=== PATIENT | female | born 1995 | race Caucasian/White ===

== ENCOUNTER 2018-05-12 20:12 | Emergency (ER) | payer SELFPAY ==
[~2018-05-12 20:12] MED LIST: NO HOME MEDS
== END 2018-05-12 22:38 | disposition left against medical advice (07) ==
LOC: ER 20:13
DX: Z48.02 Encounter for removal of sutures (principal); Z53.21 Procedure and treatment not carried out due to patient leaving prior to being seen by health care provider

== ENCOUNTER 2018-12-30 14:30 | Emergency (ER) | payer SELFPAY ==
[~2018-12-30] VITALS: Ht 160 cm; Wt 82.0 kg
[2018-12-30 14:41] VITALS: BP 166/111
== END 2018-12-30 14:44 ==
LOC: ER 14:31
DX: O16.2 Unspecified maternal hypertension, second trimester (principal); O99.332 Smoking (tobacco) complicating pregnancy, second trimester; O99.322 Drug use complicating pregnancy, second trimester; F12.90 Cannabis use, unspecified, uncomplicated; F15.90 Other stimulant use, unspecified, uncomplicated; F17.210 Nicotine dependence, cigarettes, uncomplicated; Z3A.16 16 weeks gestation of pregnancy
CPT/HCPCS: 99283

== ENCOUNTER 2019-02-08 09:15 | Emergency (ER) | payer OTHER ==
[~2019-02-08] VITALS: Ht 160 cm; Wt 90.9 kg
[2019-02-08 09:51] VITALS: BP 142/94
== END 2019-02-08 09:52 | disposition home or self-care (01) ==
LOC: ER 09:15
DX: O26.892 Other specified pregnancy related conditions, second trimester (principal); F15.10 Other stimulant abuse, uncomplicated; F12.90 Cannabis use, unspecified, uncomplicated; F10.10 Alcohol abuse, uncomplicated; Z02.89 Encounter for other administrative examinations; Y90.9 Presence of alcohol in blood, level not specified; Z3A.22 22 weeks gestation of pregnancy
CPT/HCPCS: 99283

== ENCOUNTER 2019-11-02 09:57 | Emergency (ER) | payer MEDICAID ==
[~2019-11-02] VITALS: Ht 160 cm; Wt 80.0 kg
[2019-11-02 10:05] VITALS: BP 180/109
== END 2019-11-02 11:15 | disposition home or self-care (01) ==
LOC: ER 09:57
DX: F15.10 Other stimulant abuse, uncomplicated (principal); F12.90 Cannabis use, unspecified, uncomplicated; Z72.89 Other problems related to lifestyle
CPT/HCPCS: 99281

== ENCOUNTER → 2020-01-02 | Emergency (ER) | payer MEDICAID ==
[~2020-01-02] VITALS: Ht 160 cm; Wt 72.0 kg
[~2020-01-02] MED LIST changes: +BACDS PO; +CEPH250T PO; +LIDOcaine 1% W/epiNEPHrine 1:200,000 10ml vial IJ ONE
[2020-01-02 21:19] VITALS: BP 189/112
== END | disposition home or self-care (01) ==
LOC: ER 21:12
DX: L02.414 Cutaneous abscess of left upper limb (principal); F12.90 Cannabis use, unspecified, uncomplicated; F15.90 Other stimulant use, unspecified, uncomplicated; Z72.89 Other problems related to lifestyle; Z79.899 Other long term (current) drug therapy
CPT/HCPCS: 10060; 99283

== ENCOUNTER 2020-05-28 18:55 | Emergency (ER) | payer MEDICAID ==
[~2020-05-28] VITALS: Ht 160 cm; Wt 77.2 kg
[~2020-05-28 18:55] MED LIST changes: -BACDS PO; -CEPH250T PO; -LIDOcaine 1% W/epiNEPHrine 1:200,000 10ml vial IJ ONE
[2020-05-28 19:41] LABS: BASOPHILS % (AUTO) 0.9 % (0-1); EOSINOPHILS # (AUTO) 0.1 X10'3 (0-0.9); EOSINOPHILS % (AUTO) 1.5 % (0-6); HEMATOCRIT 39.6 % (35.0-45.0); HEMOGLOBIN 13.1 g/dl (12.0-16.0); LYMPHOCYTES # (AUTO) 1.2 X10'3 (1.1-4.8); LYMPHOCYTES % (AUTO) 22.5 % (21-51); MEAN CORPUSCULAR HEMOGLOBIN 29.2 PG (27.0-31.0); MEAN CORPUSCULAR HGB CONC 33.1 g/dL (33.0-36.5); MEAN CORPUSCULAR VOLUME 88.1 FL (78-98); MEAN PLATELET VOLUME 7.6 FL (7.4-10.4); MONOCYTES # (AUTO) 0.4 X10'3 (0-0.9); MONOCYTES % (AUTO) 7.4 % (2-12); NEUTROPHILS # (AUTO) 3.5 X10'3 (1.8-7.7); NEUTROPHILS % (AUTO) 67.7 % (42-75); PLATELET COUNT 262 X10'3 (140-440); RED CELL DISTRIBUTION WIDTH 13.3 % (11.5-14.5); WHITE BLOOD COUNT 5.2 X10'3 (4.5-11.0)
[2020-05-28 19:45] LABS: CLARITY,URINE CLOUDY (Clear); COLOR,URINE YELLOW (Yellow); GLUCOSE, URINE NEGATIVE (Neg); KETONES,URINE NEGATIVE (Neg); LEUKOCYTE ESTERASE ,URINE NEGATIVE (Neg); NITRITES, URINE NEGATIVE (Neg); OCCULT BLOOD,URINE SMALL (Neg); PROTEIN,URINE NEGATIVE (Neg)
[2020-05-28] MEDS ORDERED: ketorolac tromethamine 15mg/ml inj. IM ONE (19:45)
[2020-05-28 19:46] LABS: UA COLLECTION TYPE CLN CATCH MIDSTREAM
[2020-05-28 19:47] LABS: URINE HCG NEGATIVE (NEG)
[2020-05-28 19:52] LABS: ALANINE AMINOTRANSFERASE 177 U/L (12-78); ALBUMIN 3.2 G/DL (3.4-5.0); ALBUMIN/GLOBULIN RATIO 0.7 (1.1-1.5); ALKALINE PHOSPHATASE 195 IU/L (46-116); ANION GAP 5 (8-16); ASPARTATE AMINO TRANSFERASE 126 U/L (10-37); BILIRUBIN,TOTAL 0.1 MG/DL (0.1-1.0); BLOOD UREA NITROGEN 8 MG/DL (7-18); BUN/CREATININE RATIO 9.6 (6.6-38.0); CALCIUM 9.2 MG/DL (8.5-10.1); CHLORIDE 104 MMOL/L (99-107); CREATININE 0.83 MG/DL (0.40-0.90); GLUCOSE 131 MG/DL (70-104); POTASSIUM 3.7 MMOL/L (3.5-5.1); SODIUM 141 MMOL/L (135-145); TOTAL CARBON DIOXIDE 31.9 MMOL/L (24-32); TOTAL PROTEIN 7.5 G/DL (6.4-8.2); eGFR 83 ML/MIN
[2020-05-28 20:40] LABS: AMORPHOUS PHOSPHATES 3+; BACTERIA,URINE FEW /HPF (Neg); MUCUS STRANDS MODERATE /LPF (Neg); RBC,URINE 0-2 /HPF (0-2); SQUAMOUS EPITHELIAL CELL,UR MANY /LPF (FEW); WBC,URINE 0-4 /HPF (0-4)
[2020-05-28] MEDS ORDERED: IBUP-1985 PO (21:03)
[2020-05-28 21:21] VITALS: BP 174/119
== END 2020-05-28 21:22 | disposition home or self-care (01) ==
LOC: ER 18:55
DX: R10.11 Right upper quadrant pain (principal); N93.9 Abnormal uterine and vaginal bleeding, unspecified; N23 Unspecified renal colic; M54.5 Low back pain; F17.200 Nicotine dependence, unspecified, uncomplicated; F12.90 Cannabis use, unspecified, uncomplicated; F15.90 Other stimulant use, unspecified, uncomplicated; Z79.899 Other long term (current) drug therapy
CPT/HCPCS: 36415; 76775; 80053; 81001; 81025; 85025; 96372; 99284; J1885

== ENCOUNTER 2020-06-06 09:25 | Emergency (ER) | payer MEDICAID ==
[~2020-06-06] VITALS: Ht 160 cm; Wt 77.3 kg
[~2020-06-06 09:25] MED LIST changes: +IBUP-1985 PO
[2020-06-06 09:49] VITALS: BP 154/102
[2020-06-06 10:25] LABS: CLARITY,URINE SLIGHTLY CLOUDY (Clear); COLOR,URINE YELLOW (Yellow); GLUCOSE, URINE NEGATIVE (Neg); KETONES,URINE NEGATIVE (Neg); LEUKOCYTE ESTERASE ,URINE TRACE (Neg); NITRITES, URINE NEGATIVE (Neg); OCCULT BLOOD,URINE LARGE (Neg); PROTEIN,URINE NEGATIVE (Neg); UROBILINOGEN,URINE 0.2 E.U/dL (0.2-1.0)
[2020-06-06 10:27] LABS: UA COLLECTION TYPE CLN CATCH MIDSTREAM
[2020-06-06 10:28] LABS: URINE HCG NEGATIVE (NEG)
[2020-06-06 10:30] LABS: SQUAMOUS EPITHELIAL CELL,UR FEW /LPF (FEW)
[2020-06-06 10:31] LABS: BACTERIA,URINE 1+ /HPF (Neg); RBC,URINE 50-100 /HPF (0-2); WBC CLUMPS,URINE FEW /HPF (NEGATIVE)
[2020-06-06 10:53] LABS: BASOPHILS % (AUTO) 0.7 % (0-1); EOSINOPHILS # (AUTO) 0.1 X10'3 (0-0.9); EOSINOPHILS % (AUTO) 1.9 % (0-6); HEMATOCRIT 37.8 % (35.0-45.0); HEMOGLOBIN 12.6 g/dl (12.0-16.0); LYMPHOCYTES # (AUTO) 1.3 X10'3 (1.1-4.8); LYMPHOCYTES % (AUTO) 20.5 % (21-51); MEAN CORPUSCULAR HGB CONC 33.4 g/dL (33.0-36.5); MEAN CORPUSCULAR VOLUME 86.9 FL (78-98); MEAN PLATELET VOLUME 7.5 FL (7.4-10.4); MONOCYTES # (AUTO) 0.5 X10'3 (0-0.9); NEUTROPHILS # (AUTO) 4.6 X10'3 (1.8-7.7); NEUTROPHILS % (AUTO) 69.9 % (42-75); PLATELET COUNT 367 X10'3 (140-440); RED BLOOD COUNT 4.35 X10'6 (4.20-5.60); RED CELL DISTRIBUTION WIDTH 14.2 % (11.5-14.5); WHITE BLOOD COUNT 6.5 X10'3 (4.5-11.0)
[2020-06-06 11:05] LABS: ALANINE AMINOTRANSFERASE 83 U/L (12-78); ALBUMIN/GLOBULIN RATIO 0.6 (1.1-1.5); ALKALINE PHOSPHATASE 200 IU/L (46-116); ANION GAP 6 (8-16); ASPARTATE AMINO TRANSFERASE 27 U/L (10-37); BILIRUBIN,TOTAL 0.3 MG/DL (0.1-1.0); BLOOD UREA NITROGEN 12 MG/DL (7-18); BUN/CREATININE RATIO 14.6 (6.6-38.0); CALCIUM 8.5 MG/DL (8.5-10.1); CHLORIDE 102 MMOL/L (99-107); CREATININE 0.82 MG/DL (0.40-0.90); GLUCOSE 111 MG/DL (70-104); LIPASE 72 U/L (73-393); POTASSIUM 3.7 MMOL/L (3.5-5.1); SODIUM 137 MMOL/L (135-145); TOTAL CARBON DIOXIDE 29.4 MMOL/L (24-32); TOTAL PROTEIN 7.8 G/DL (6.4-8.2); eGFR 84 ML/MIN
--- NOTE | 2020-06-06 11:13 | NUR ---
Provider is doing the pelvic exam, chaperoned/assisted by RODERICK Giraldo.
[2020-06-06] MEDS ORDERED: IBUP-1985 PO (21:50)
== END 2020-06-06 11:55 | disposition home or self-care (01) ==
LOC: ER 09:25
DX: N93.8 Other specified abnormal uterine and vaginal bleeding (principal); N64.4 Mastodynia; F12.90 Cannabis use, unspecified, uncomplicated; F15.90 Other stimulant use, unspecified, uncomplicated; Z79.899 Other long term (current) drug therapy
CPT/HCPCS: 36415; 80053; 81001; 81025; 83690; 85025; 87088; 99284

== ENCOUNTER 2020-06-06 20:51 | Emergency (ER) | payer MEDICAID ==
[~2020-06-06] VITALS: Ht 160 cm; Wt 77.3 kg
[2020-06-06 20:56] VITALS: BP 158/107
[2020-06-06] MEDS ORDERED: IBUP-1985 PO (21:50)
== END 2020-06-06 22:00 | disposition home or self-care (01) ==
LOC: ER 20:52
DX: K02.9 Dental caries, unspecified (principal); K08.89 Other specified disorders of teeth and supporting structures; F12.90 Cannabis use, unspecified, uncomplicated; F15.90 Other stimulant use, unspecified, uncomplicated; Z79.899 Other long term (current) drug therapy
CPT/HCPCS: 99282

== ENCOUNTER 2020-07-29 09:50 | Emergency (ER) | payer MEDICAID ==
[~2020-07-29] VITALS: Ht 160 cm; Wt 79.6 kg
[2020-07-29 09:59] VITALS: BP 139/91
[2020-07-29] MEDS ORDERED: penicillin G benzathine 1.2 million unit/2ml syringe IM ONE (11:40)
== END 2020-07-29 12:30 | disposition home or self-care (01) ==
LOC: ER 09:50
DX: L23.7 Allergic contact dermatitis due to plants, except food (principal); A64 Unspecified sexually transmitted disease; Z79.899 Other long term (current) drug therapy
CPT/HCPCS: 96372; 99283; J0561

== ENCOUNTER 2021-07-12 15:14 | Emergency (ER) | payer MEDICAID | END 2021-07-12 17:10 | disposition left against medical advice (07) | LOC: ER 15:14 | DX: R10.9 Unspecified abdominal pain (principal); Z53.21 Procedure and treatment not carried out due to patient leaving prior to being seen by health care provider ==

== ENCOUNTER 2022-04-13 15:10 | Emergency (ER) | payer MEDICAID ==
[~2022-04-13] VITALS: Ht 160 cm; Wt 72.7 kg
--- NOTE | 2022-04-13 15:33 | NUR ---
YONI UREÑA MADE AWARE OF PT HYPERTENSION IN TRIAGE
[2022-04-13 17:15] VITALS: BP 178/113
[2022-04-13] MEDS ORDERED: cloNIDine 0.1 mg tablet PO STA (17:37)
[2022-04-13] MEDS ORDERED: ibuprofen tablet 400 MG TABLET PO ONE (17:40)
[2022-04-13] MEDS ORDERED: amox tr/potassium clavulanate 875/125mg TAB PO ONE (17:40)
[2022-04-13] MEDS ORDERED: AMOX-117 PO (17:42)
--- NOTE | 2022-04-13 17:42 | NUR ---
Patient was arrested and escorted out of facility by [employer]. Awaiting for [employer] to return patient to continue treatment.
== END 2022-04-13 18:24 ==
LOC: ER 15:10
DX: M79.631 Pain in right forearm (principal); T43.625A Adverse effect of amphetamines, initial encounter; Y92.9 Unspecified place or not applicable; F15.90 Other stimulant use, unspecified, uncomplicated; Z79.2 Long term (current) use of antibiotics; Z79.899 Other long term (current) drug therapy
CPT/HCPCS: 99284

== ENCOUNTER 2022-07-16 13:46 | Emergency (ER) | payer MEDICAID ==
[~2022-07-16] VITALS: Ht 160 cm; Wt 68.0 kg
[2022-07-16 13:50] VITALS: BP 196/137
== END 2022-07-16 17:58 | disposition left against medical advice (07) ==
LOC: ER 13:47
DX: Z02.79 Encounter for issue of other medical certificate (principal); Z53.21 Procedure and treatment not carried out due to patient leaving prior to being seen by health care provider

== ENCOUNTER 2023-02-08 15:28 | Emergency (ER) | payer MEDICAID ==
[~2023-02-08] VITALS: Ht 160 cm; Wt 103.0 kg
[2023-02-08 15:53] LABS: BASOPHILS # (AUTO) 0.1 X10'3 (0-0.2); BASOPHILS % (AUTO) 0.5 % (0-1); EOSINOPHILS # (AUTO) 0.2 X10'3 (0-0.9); EOSINOPHILS % (AUTO) 2.1 % (0-6); HEMATOCRIT 40.6 % (35.0-45.0); HEMOGLOBIN 13.8 g/dl (12.0-16.0); LYMPHOCYTES % (AUTO) 17.8 % (21-51); MEAN CORPUSCULAR HEMOGLOBIN 30.2 PG (27.0-31.0); MEAN CORPUSCULAR HGB CONC 34.1 g/dL (33.0-36.5); MEAN CORPUSCULAR VOLUME 88.8 FL (78-98); MEAN PLATELET VOLUME 7.5 FL (7.4-10.4); MONOCYTES # (AUTO) 0.6 X10'3 (0-0.9); NEUTROPHILS # (AUTO) 8.3 X10'3 (1.8-7.7); NEUTROPHILS % (AUTO) 74.6 % (42-75); PLATELET COUNT 342 X10'3 (140-440); RED BLOOD COUNT 4.57 X10'6 (4.20-5.60); RED CELL DISTRIBUTION WIDTH 12.5 % (11.5-14.5); WHITE BLOOD COUNT 11.1 X10'3 (4.5-11.0)
[2023-02-08 16:07] LABS: ANION GAP 6 (8-16); BLOOD UREA NITROGEN 9 MG/DL (7-18); CHLORIDE 105 MMOL/L (99-107); CREATININE 0.74 MG/DL (0.40-0.90); GLUCOSE 144 MG/DL (70-104); POTASSIUM 3.8 MMOL/L (3.5-5.1); SODIUM 138 MMOL/L (135-145); TOTAL CARBON DIOXIDE 26.7 MMOL/L (24-32)
[2023-02-08 16:08] LABS: ALANINE AMINOTRANSFERASE 23 U/L (12-78); ALBUMIN 3.4 G/DL (3.4-5.0); ALBUMIN/GLOBULIN RATIO 0.9 (1.1-1.5); ALKALINE PHOSPHATASE 103 IU/L (46-116); ASPARTATE AMINO TRANSFERASE 16 U/L (10-37); BILIRUBIN,TOTAL 0.1 MG/DL (0.1-1.0); BUN/CREATININE RATIO 12.2 (10.0-20.0); CALCIUM 8.7 MG/DL (8.5-10.1); TOTAL PROTEIN 7.2 G/DL (6.4-8.2); eGFR > 90 ML/MIN
[2023-02-08] MEDS ORDERED: labetalol 20mg/4ml (5mg/ml) syringe IV ONE (16:20)
[2023-02-08 17:02] LABS: CLARITY,URINE SLIGHTLY CLOUDY (Clear); COLOR,URINE YELLOW (Yellow); GLUCOSE, URINE NEGATIVE (Neg); KETONES,URINE TRACE mg/dl (Neg); LEUKOCYTE ESTERASE ,URINE NEGATIVE (Neg); NITRITES, URINE POSITIVE (Neg); OCCULT BLOOD,URINE NEGATIVE (Neg); PROTEIN,URINE NEGATIVE (Neg); UROBILINOGEN,URINE 0.2 E.U/dL (0.2-1.0)
[2023-02-08 17:03] LABS: UA COLLECTION TYPE CLN CATCH MIDSTREAM
[2023-02-08 17:15] LABS: BACTERIA,URINE 4+ /HPF (Neg); MUCUS STRANDS FEW /LPF (Neg); RBC,URINE 0-2 /HPF (0-2); SQUAMOUS EPITHELIAL CELL,UR MANY /LPF (FEW)
[2023-02-08] MEDS ORDERED: LABE100T8 PO (17:18)
[2023-02-08] MEDS ORDERED: NITR100C6 PO (17:29)
[2023-02-08] MEDS ORDERED: nitrofuran monohydrate/nitrofuran macrocrysal 100 MG (MacroBID) capsule PO ONE (17:30)
[2023-02-08 17:33] LABS: URINE AMPHETAMINE SCREEN NEGATIVE (Neg); URINE BARBITUATE SCREEN NEGATIVE (Neg); URINE BENZODIAZEPINES SCREEN NEGATIVE (Neg); URINE CANNABINOID SCREEN NEGATIVE (Neg); URINE COCAINE SCREEN NEGATIVE (Neg); URINE METHADONE SCREEN NEGATIVE (Neg); URINE OPIATE SCREEN NEGATIVE (Neg); URINE PHENCYCLIDINE SCREEN NEGATIVE (Neg)
[2023-02-08 17:59] VITALS: BP 171/106
== END 2023-02-08 18:00 | disposition home or self-care (01) ==
LOC: ER 15:29
DX: O10.011 Pre-existing essential hypertension complicating pregnancy, first trimester (principal); O23.41 Unspecified infection of urinary tract in pregnancy, first trimester; O26.891 Other specified pregnancy related conditions, first trimester; R07.9 Chest pain, unspecified
CPT/HCPCS: 36415; 76801; 80053; 80305; 81001; 83735; 83880; 84484; 84702; 85025; 93005; 96374; 99285; J3490; J7030

== ENCOUNTER 2023-04-24 17:31 | Emergency (ER) | payer MEDICAID ==
[~2023-04-24] VITALS: Ht 160 cm; Wt 104.4 kg
[~2023-04-24 17:31] MED LIST changes: +LABE100T8 PO; +NITR100C6 PO
[2023-04-24 20:08] VITALS: BP 127/85; PULSE 99; RESP 16; O2SAT 96
--- NOTE | 2023-04-24 20:49 | NUR ---
Patient states that she wants to leave and she preceded to ambulate off the unit. Hives had resolved. ED provider notified that the patient eloped.
== END 2023-04-24 21:11 | disposition left against medical advice (07) ==
LOC: ER 17:32
DX: L50.9 Urticaria, unspecified (principal); Z53.21 Procedure and treatment not carried out due to patient leaving prior to being seen by health care provider
CPT/HCPCS: 99281

== ENCOUNTER 2023-10-29 09:24 | Emergency (ER) | payer MEDICAID ==
[~2023-10-29] VITALS: Ht 160 cm; Wt 106.0 kg
[2023-10-29 10:21] LABS: PRO BRAIN NATRIURETIC PEPTIDE 52 PG/ML (0-125)
[2023-10-29 10:54] LABS: ALBUMIN 3.6 G/DL (3.4-5.0); ANION GAP 10 (8-16); BLOOD UREA NITROGEN 11 MG/DL (7-18); BUN/CREATININE RATIO 15.3 (10.0-20.0); CALCIUM 8.2 MG/DL (8.5-10.1); CHLORIDE 106 MMOL/L (99-107); CREATININE 0.72 MG/DL (0.40-0.90); GLUCOSE 108 MG/DL (70-104); SODIUM 137 MMOL/L (135-145); TOTAL CARBON DIOXIDE 21.1 MMOL/L (24-32); eCRCL 95 ML/MIN; eGFR > 90 ML/MIN
[2023-10-29 12:40] VITALS: BP 189/129; PULSE 82; RESP 15; O2SAT 98
[2023-10-29] MEDS: labetalol 100mg tablet PO SCH (12:41)
[2023-10-29 12:46] VITALS: TEMP 97.9
== END 2023-10-29 12:55 | disposition home or self-care (01) ==
LOC: ER 09:24
DX: I10 Essential (primary) hypertension (principal); R07.89 Other chest pain; F15.10 Other stimulant abuse, uncomplicated; Z59.00 Homelessness unspecified; Z79.899 Other long term (current) drug therapy
CPT/HCPCS: 36415; 71045; 80048; 83880; 84484; 93005; 99285

== ENCOUNTER 2023-12-27 17:36 | Emergency (ER) | payer MEDICAID ==
[~2023-12-27] VITALS: Ht 160 cm; Wt 107.3 kg
[2023-12-27 18:04] VITALS: TEMP 98
[2023-12-27 21:21] VITALS: BP 190/107; PULSE 90; RESP 16; O2SAT 98
== END 2023-12-27 21:50 | disposition left against medical advice (07) ==
LOC: ER 17:37
DX: R07.81 Pleurodynia (principal); Z53.21 Procedure and treatment not carried out due to patient leaving prior to being seen by health care provider
CPT/HCPCS: 99281; 99283

== ENCOUNTER 2024-04-19 06:25 | Emergency (ER) | payer MEDICAID ==
[~2024-04-19] VITALS: Ht 160 cm; Wt 106.6 kg
[2024-04-19] MEDS: normal saline 1000ML IV soln IVB ONE ×2 (07:40→14:52)
[2024-04-19] MEDS: metoclopramide 5 mg/ml inj IV ONE (07:40)
[2024-04-19] MEDS: ondansetron/PF 4mg/2ml inj IV ONE ×2 (07:40→15:03)
[2024-04-19 07:58] LABS: ANION GAP 10 (8-16); BLOOD UREA NITROGEN 12 MG/DL (7-18); BUN/CREATININE RATIO 11.5 (10.0-20.0); CALCIUM 8.9 MG/DL (8.5-10.1); CHLORIDE 102 MMOL/L (99-107); CREATININE 1.04 MG/DL (0.40-0.90); GLUCOSE 135 MG/DL (70-104); LIPASE 21 U/L (16-77); POTASSIUM 3.5 MMOL/L (3.5-5.1); SODIUM 136 MMOL/L (135-145); TOTAL CARBON DIOXIDE 23.7 MMOL/L (24-32); eCRCL 65 ML/MIN; eGFR 62 ML/MIN
[2024-04-19 08:06] LABS: BILIRUBIN,URINE NEGATIVE (Neg); CLARITY,URINE SLIGHTLY CLOUDY (Clear); COLOR,URINE YELLOW (Yellow); GLUCOSE, URINE NEGATIVE (Neg); KETONES,URINE NEGATIVE (Neg); LEUKOCYTE ESTERASE ,URINE SMALL (Neg); NITRITES, URINE NEGATIVE (Neg); OCCULT BLOOD,URINE MODERATE (Neg); PH,URINE 6.5 (4.8-8.0); PROTEIN,URINE 30 mg/dl (Neg); UROBILINOGEN,URINE 0.2 E.U/dL (0.2-1.0)
[2024-04-19 08:07] LABS: HCG SERUM QL NEGATIVE
[2024-04-19 08:24] LABS: UA COLLECTION TYPE NON-SPECIFIED
[2024-04-19 08:25] LABS: BACTERIA,URINE 1+ /HPF (Neg); MUCUS STRANDS FEW /LPF (Neg); SQUAMOUS EPITHELIAL CELL,UR MODERATE /LPF (FEW); WBC,URINE 30-50 /HPF (0-4)
[2024-04-19 09:14] LABS: BASOPHILS % (AUTO) 0.3 % (0-1); EOSINOPHILS % (AUTO) 0.2 % (0-6); HEMATOCRIT 46.5 % (35.0-45.0); HEMOGLOBIN 15.7 g/dl (12.0-16.0); LYMPHOCYTES # (AUTO) 0.6 X10'3 (1.1-4.8); LYMPHOCYTES % (AUTO) 3.3 % (21-51); MEAN CORPUSCULAR HEMOGLOBIN 30.6 PG (27.0-31.0); MEAN CORPUSCULAR HGB CONC 33.8 g/dL (33.0-36.5); MEAN CORPUSCULAR VOLUME 90.7 FL (78-98); MEAN PLATELET VOLUME 8.7 FL (7.4-10.4); MONOCYTES # (AUTO) 1.2 X10'3 (0-0.9); MONOCYTES % (AUTO) 6.3 % (2-12); NEUTROPHILS % (AUTO) 89.9 % (42-75); PLATELET COUNT 296 X10'3 (140-440); RED BLOOD COUNT 5.13 X10'6 (4.20-5.60); RED CELL DISTRIBUTION WIDTH 12.6 % (11.5-14.5); WHITE BLOOD COUNT 18.9 X10'3 (4.5-11.0)
[2024-04-19] MEDS: acetaminophen 325mg tablet PO ONE (09:17)
[2024-04-19] MEDS: ketorolac trometh. 30mg/ml inj. IV ONE (09:18)
[2024-04-19] MEDS: CefTRIAXone/D5W-Rocephin 1gm 50 ML IV ONE (10:21)
[2024-04-19] MEDS: morphine 4 MG/ML inj SYRINge IV ONE ×2 (11:59→14:56)
[2024-04-19] MEDS: labetalol 100mg tablet PO ONE (12:23)
[2024-04-19 13:21] VITALS: TEMP 98.1
[2024-04-19] MEDS ORDERED: ondansetron/PF 4mg/2ml inj IM ONE (14:45)
[2024-04-19] MEDS ORDERED: HYDR-3973 PO (14:54)
[2024-04-19] MEDS ORDERED: LABE100T8 PO (14:54)
[2024-04-19] MEDS ORDERED: LABE300T4 PO (14:54)
[2024-04-19] MEDS ORDERED: FLO0.4C PO (14:54)
[2024-04-19 17:34] VITALS: BP 120/57; PULSE 85; RESP 13; O2SAT 95
== END 2024-04-19 17:36 | disposition home or self-care (01) ==
LOC: ER 06:25
DX: N23 Unspecified renal colic (principal); N20.1 Calculus of ureter; N39.0 Urinary tract infection, site not specified; I10 Essential (primary) hypertension; F15.90 Other stimulant use, unspecified, uncomplicated; Z79.1 Long term (current) use of non-steroidal anti-inflammatories (NSAID); Z79.899 Other long term (current) drug therapy; Z56.0 Unemployment, unspecified
CPT/HCPCS: 36415; 74176; 80048; 81001; 83690; 84703; 85025; 87088; 96361; 96365; 96375; 96376; 99285; J0696; J1885; J2270; J2405; J2765; J7030

== ENCOUNTER 2024-05-17 06:11 | Emergency (ER) | payer MEDICAID ==
[~2024-05-17] VITALS: Ht 160 cm; Wt 104.9 kg
[~2024-05-17 06:11] MED LIST changes: +FLO0.4C PO; +LABE300T4 PO
[2024-05-17 06:13] VITALS: TEMP 97.3
[2024-05-17] MEDS: morphine 4 MG/ML inj SYRINge IV ONE ×2 (06:42→10:56)
[2024-05-17] MEDS: normal saline 1000ML IV soln IVB ONE (06:42)
[2024-05-17] MEDS: diphenhydrAMINE 50 mg/ml inj IV ONE (06:42)
[2024-05-17] MEDS: metoclopramide 5 mg/ml inj IV ONE (06:43)
[2024-05-17] MEDS: LORazepam 2 mg/ml vial IV ONE (06:43)
[2024-05-17 06:56] LABS: BILIRUBIN,URINE NEGATIVE (Neg); CLARITY,URINE CLEAR (Clear); COLOR,URINE STRAW (Yellow); GLUCOSE, URINE NEGATIVE (Neg); KETONES,URINE NEGATIVE (Neg); LEUKOCYTE ESTERASE ,URINE NEGATIVE (Neg); NITRITES, URINE NEGATIVE (Neg); OCCULT BLOOD,URINE TRACE-INTACT (Neg); PROTEIN,URINE 30 mg/dl (Neg); UROBILINOGEN,URINE 0.2 E.U/dL (0.2-1.0)
[2024-05-17 07:01] LABS: BASOPHILS # (AUTO) 0.1 X10'3 (0-0.2); EOSINOPHILS # (AUTO) 0.1 X10'3 (0-0.9); EOSINOPHILS % (AUTO) 1.5 % (0-6); HEMATOCRIT 44.7 % (35.0-45.0); HEMOGLOBIN 15.1 g/dl (12.0-16.0); LYMPHOCYTES # (AUTO) 1.7 X10'3 (1.1-4.8); LYMPHOCYTES % (AUTO) 17.7 % (21-51); MEAN CORPUSCULAR HEMOGLOBIN 30.2 PG (27.0-31.0); MEAN CORPUSCULAR HGB CONC 33.9 g/dL (33.0-36.5); MEAN CORPUSCULAR VOLUME 89.3 FL (78-98); MEAN PLATELET VOLUME 8.1 FL (7.4-10.4); MONOCYTES # (AUTO) 0.5 X10'3 (0-0.9); MONOCYTES % (AUTO) 5.6 % (2-12); NEUTROPHILS # (AUTO) 7.1 X10'3 (1.8-7.7); NEUTROPHILS % (AUTO) 74.2 % (42-75); PLATELET COUNT 330 X10'3 (140-440); RED BLOOD COUNT 5.01 X10'6 (4.20-5.60); WHITE BLOOD COUNT 9.6 X10'3 (4.5-11.0)
[2024-05-17 07:03] LABS: ALANINE AMINOTRANSFERASE 75 U/L (12-78); ALBUMIN 3.8 G/DL (3.4-5.0); ALBUMIN/GLOBULIN RATIO 0.9 (1.1-1.5); ALKALINE PHOSPHATASE 110 IU/L (46-116); ANION GAP 10 (8-16); ASPARTATE AMINO TRANSFERASE 42 U/L (10-37); BILIRUBIN,TOTAL 0.3 MG/DL (0.1-1.0); BLOOD UREA NITROGEN 9 MG/DL (7-18); BUN/CREATININE RATIO 9.3 (10.0-20.0); CALCIUM 8.9 MG/DL (8.5-10.1); CHLORIDE 107 MMOL/L (99-107); CREATININE 0.97 MG/DL (0.40-0.90); GLUCOSE 145 MG/DL (70-104); LIPASE 24 U/L (16-77); POTASSIUM 4.1 MMOL/L (3.5-5.1); SODIUM 139 MMOL/L (135-145); TOTAL CARBON DIOXIDE 21.9 MMOL/L (24-32); TOTAL PROTEIN 7.9 G/DL (6.4-8.2); eCRCL 70 ML/MIN; eGFR 67 ML/MIN
[2024-05-17 07:10] LABS: URINE HCG NEGATIVE (NEG)
[2024-05-17] MEDS: labetalol 100mg tablet PO STA (07:10)
[2024-05-17 07:15] LABS: UA COLLECTION TYPE CLN CATCH MIDSTREAM
[2024-05-17 07:27] LABS: BACTERIA,URINE 2+ /HPF (Neg); MUCUS STRANDS NONE SEEN /LPF (Neg); RBC,URINE 0-2 /HPF (0-2); SQUAMOUS EPITHELIAL CELL,UR MODERATE /LPF (FEW)
[2024-05-17] MEDS: CefTRIAXone 2gm/D5W 50ml BAG 50 ML IV ONE (08:42)
[2024-05-17] MEDS ORDERED: CEPH-585 PO (11:29)
[2024-05-17] MEDS ORDERED: ONDA-243 PO (11:29)
[2024-05-17] MEDS ORDERED: FLO0.4C PO (11:29)
[2024-05-17] MEDS ORDERED: OXYC-138 PO (11:29)
[2024-05-17 11:39] VITALS: BP 188/103; PULSE 87; RESP 16; O2SAT 98
== END 2024-05-17 11:47 | disposition home or self-care (01) ==
LOC: ER 06:12
DX: N20.0 Calculus of kidney (principal); I10 Essential (primary) hypertension; F15.90 Other stimulant use, unspecified, uncomplicated; Z79.2 Long term (current) use of antibiotics; Z79.1 Long term (current) use of non-steroidal anti-inflammatories (NSAID); Z79.899 Other long term (current) drug therapy; Z56.0 Unemployment, unspecified
CPT/HCPCS: 36415; 74176; 80053; 81001; 81025; 83690; 85025; 87088; 87186; 96361; 96365; 96375; 96376; 99285; J0696; J1200; J2270; J2765; J7030; 87077

== ENCOUNTER 2024-06-05 02:23 | Emergency (ER) | payer MEDICAID ==
[~2024-06-05] VITALS: Ht 160 cm; Wt 84.1 kg
[~2024-06-05 02:23] MED LIST changes: +CEPH-585 PO; +ONDA-243 PO; +OXYC-138 PO
[2024-06-05 03:04] LABS: BILIRUBIN,URINE NEGATIVE (Neg); CLARITY,URINE CLEAR (Clear); COLOR,URINE YELLOW (Yellow); GLUCOSE, URINE NEGATIVE (Neg); KETONES,URINE NEGATIVE (Neg); LEUKOCYTE ESTERASE ,URINE TRACE (Neg); NITRITES, URINE POSITIVE (Neg); OCCULT BLOOD,URINE LARGE (Neg); PROTEIN,URINE NEGATIVE (Neg); UROBILINOGEN,URINE 0.2 E.U/dL (0.2-1.0)
[2024-06-05 03:05] LABS: URINE HCG NEGATIVE (NEG)
[2024-06-05 03:24] LABS: UA COLLECTION TYPE CLN CATCH MIDSTREAM
[2024-06-05 03:25] LABS: BACTERIA,URINE 3+ /HPF (Neg); MUCUS STRANDS FEW /LPF (Neg); SQUAMOUS EPITHELIAL CELL,UR FEW /LPF (FEW)
[2024-06-05] MEDS: normal saline 1000ml 1,000 ML IV ONE ×2 (03:30→03:45)
[2024-06-05] MEDS: ketorolac trometh 30MG/ML vial 30 MG/ML VIAL IV ONE (03:31)
[2024-06-05] MEDS: tamsulosin 0.4mg capsule PO SCH (03:37)
[2024-06-05 03:46] LABS: BASOPHILS # (AUTO) 0.1 X10'3 (0-0.2); BASOPHILS % (AUTO) 1.1 % (0-1); EOSINOPHILS # (AUTO) 0.3 X10'3 (0-0.9); EOSINOPHILS % (AUTO) 3.7 % (0-6); HEMATOCRIT 44.4 % (35.0-45.0); HEMOGLOBIN 14.7 g/dl (12.0-16.0); LYMPHOCYTES % (AUTO) 26.3 % (21-51); MEAN CORPUSCULAR HEMOGLOBIN 30.3 PG (27.0-31.0); MEAN CORPUSCULAR HGB CONC 33.1 g/dL (33.0-36.5); MEAN CORPUSCULAR VOLUME 91.4 FL (78-98); MONOCYTES # (AUTO) 0.6 X10'3 (0-0.9); MONOCYTES % (AUTO) 7.3 % (2-12); NEUTROPHILS # (AUTO) 4.7 X10'3 (1.8-7.7); NEUTROPHILS % (AUTO) 61.6 % (42-75); PLATELET COUNT 296 X10'3 (140-440); RED BLOOD COUNT 4.85 X10'6 (4.20-5.60); RED CELL DISTRIBUTION WIDTH 12.8 % (11.5-14.5); WHITE BLOOD COUNT 7.7 X10'3 (4.5-11.0)
[2024-06-05 04:08] LABS: ANION GAP 9 (8-16); BILIRUBIN,TOTAL 0.4 MG/DL (0.1-1.0); BLOOD UREA NITROGEN 7 MG/DL (7-18); CALCIUM 9.2 MG/DL (8.5-10.1); CHLORIDE 106 MMOL/L (99-107); CREATININE 0.88 MG/DL (0.40-0.90); GLUCOSE 116 MG/DL (70-104); SODIUM 142 MMOL/L (135-145); TOTAL CARBON DIOXIDE 27.5 MMOL/L (24-32); TOTAL PROTEIN 7.6 G/DL (6.4-8.2); eCRCL 77 ML/MIN; eGFR 75 ML/MIN
[2024-06-05 04:09] LABS: ALANINE AMINOTRANSFERASE 69 U/L (12-78); ALBUMIN 3.7 G/DL (3.4-5.0); ALBUMIN/GLOBULIN RATIO 0.9 (1.1-1.5); ALKALINE PHOSPHATASE 105 IU/L (46-116); ASPARTATE AMINO TRANSFERASE 30 U/L (10-37)
[2024-06-05] MEDS: HYDROmorphone 1 mg/ml syringe IV ONE (04:12)
[2024-06-05] MEDS ORDERED: IBUP-1985 PO (05:25)
[2024-06-05] MEDS ORDERED: FLO0.4C PO (05:25)
[2024-06-05] MEDS ORDERED: ONDA-243 PO (05:25)
[2024-06-05] MEDS ORDERED: HYDR-3965 PO ×2 (05:26→18:32)
[2024-06-05 05:37] VITALS: BP 151/79; PULSE 59; RESP 17; TEMP 98.1; O2SAT 98
== END 2024-06-05 05:39 | disposition home or self-care (01) ==
LOC: ER 02:24
DX: N20.0 Calculus of kidney (principal); I10 Essential (primary) hypertension; F15.90 Other stimulant use, unspecified, uncomplicated; Z79.1 Long term (current) use of non-steroidal anti-inflammatories (NSAID); Z79.2 Long term (current) use of antibiotics; Z79.899 Other long term (current) drug therapy
CPT/HCPCS: 36415; 80053; 81001; 81025; 85025; 87088; 87186; 96361; 96374; 96375; 99284; J1170; J1885; J7030; 87077